=== PATIENT | female | born 1985 | race Caucasian/White ===

== ENCOUNTER 2023-04-18 17:34 | Emergency (ER) | payer BC, OTHER, SELFPAY ==
--- NOTE | 2023-04-18 17:51 | ED.URI ---
HPI - URI/Sore Throat General Chief Complaint: Upper Respiratory Infection Stated Complaint: body pain/sore throat Time Seen by Provider: 04/18/23 17:57 History of Present Illness HPI Narrative: 37 y/o female presented for c/o sore throat, runny nose, body aches, fatigue, and subjective fever since yesterday. Endorses son has similar symptoms for about a week. She denies vomiting, diarrhea, shortness of breath or wheezing. She has taken [id number] cough and cold medication. Related Data Home Medications Medication Instructions Recorded Confirmed aripiprazole 30 mg tablet 30 mg PO DAILY 04/18/23 04/18/23 clonazepam 0.5 mg tablet 0.5 mg PO DIRECTED 04/18/23 04/18/23 levothyroxine 50 mcg tablet 50 mcg PO DAILY 04/18/23 04/18/23 metformin 500 mg tablet 500 mg PO DIRECTED 04/18/23 04/18/23 omeprazole 40 mg capsule,delayed 40 mg PO DAILY 04/18/23 04/18/23 release propranolol 20 mg tablet 20 mg PO DAILY 04/18/23 04/18/23 sertraline 100 mg tablet 100 mg PO DAILY 04/18/23 04/18/23 zolpidem 10 mg tablet 10 mg PO DAILY 04/18/23 04/18/23 Allergies Allergy/AdvReac Type Severity Reaction Status Date / Time No Known Allergies Allergy Verified 04/18/23 18:03 Review of Systems Review of Systems: CONSTITUTIONAL: Reports body aches, fever, chills, sweats. EYES: Denies visual changes, redness, or discharge. ENT: Reports sore throat, rhinorrhea, congestion CARDIOVASCULAR: Denies chest pain, palpitations, or edema. RESPIRATORY: Denies dyspnea. GASTROINTESTINAL: Denies abdominal pain, vomiting, or diarrhea. SKIN: Denies rash, itching, or wounds. MUSCULOSKELETAL: Reports myalgias denies back pain, joint pain NEUROLOGIC: Denies headache PMFSH Past Medical History Medical History (Updated 04/18/23 @ 18:10 by Ariane Ji APRN) Anxiety and depression Soliman's esophagus Hypothyroid Surgical History Surgical History (Updated 04/18/23 @ 18:08 by Ariane Ji APRN) H/O gastric sleeve History of tonsillectomy and adenoidectomy Social History Social History (Updated 04/18/23 @ 18:09 by Ariane Ji, [employer]) Smoking packs per day: 0.25 Smoking cigarettes per day: 5.0 Smoking status: Current every day smoker Tobacco type: cigarettes Alcohol use details: social alcohol Other substance usage details: Edibles Exam Narrative: GENERAL: mildly Ill-appearing, no acute distress. EYES: conjunctivae clear ENT: Mucous membranes moist. TMs pearly beltre with normal light reflex bilaterally; no tragal tenderness. Oropharynx erythematous without lesions or exudate, tonsils absent. No drooling, no hoarseness, no trismus, uvula midline. No tripod positioning, hot potato voice, or soft palate swelling. NECK: Supple. No lymphadenopathy CHEST: Clear to auscultation, breath sounds equal. No respiratory distress, speaks in full sentences. HEART: Regular rate and rhythm. No murmur heard. SKIN: Warm, dry, no rash. NEURO: Alert and oriented x3. Course Course Emergency Course: Patient is aware of diagnosis, understands and agrees to treatment plan. Anticipatory guidance given. Patient agrees to follow-up as directed and is aware of reasons to seek care at the emergency department. Portions of this record may have been created with voice recognition software Level of Care: Express Care Visit Vital Signs Vital signs: Vital Signs Temperature 98.1 F 04/18/23 17:57 Pulse Rate 100 04/18/23 17:57 Respiratory Rate 12 04/18/23 17:57 Blood Pressure 126/70 04/18/23 17:57 Pulse Oximetry 99 04/18/23 17:57 Oxygen Delivery Room Air 04/18/23 17:57 Temperature 98.1 F 04/18/23 17:57 Pulse Rate 100 04/18/23 17:57 Respiratory Rate 12 04/18/23 17:57 Blood Pressure 126/70 04/18/23 17:57 Pulse Oximetry 99 04/18/23 17:57 Oxygen Delivery Room Air 04/18/23 17:57 MDM - URI/Sore Throat MDM Narrative Medical decision making narrative: Negative COV
[2023-04-18 17:57] VITALS: BP 126/70; PULSE 100; RESP 12; TEMP 36.7; O2SAT 99
== END 2023-04-18 18:15 | disposition home or self-care (01) ==
PROVIDERS: Emergency Provider Nurse Practitioner Family; PCP Physician Assistant
DX: B34.9 Viral infection, unspecified (principal); J02.0 Streptococcal pharyngitis; Z20.822 Contact with and (suspected) exposure to COVID-19; F17.210 Nicotine dependence, cigarettes, uncomplicated; K22.70 Barrett's esophagus without dysplasia; F41.9 Anxiety disorder, unspecified; F32.A Depression, unspecified
CPT/HCPCS: 87081; 87147; 87426; 87804; 87880; 99203; C9803; G0463